=== PATIENT | female | born 1975 | race Caucasian/White ===

== ENCOUNTER 2017-09-19 05:38 | Day surgery (SDC) | payer OTHER ==
[~2017-09-19] VITALS: Ht 154.9 cm; Wt 53.1 kg
[~2017-09-19 05:38] MED LIST: SYNTHROID125 MCG PO; SYNTHROID137 MCG PO; VITAMIN D2000 UNIT PO
== END 2017-09-19 14:40 | disposition home or self-care (01) ==
LOC: CIR.AMB 05:38
DX: N80.4 Endometriosis of rectovaginal septum and vagina (principal); N80.3 Endometriosis of pelvic peritoneum